=== PATIENT | female | born 1980 | race African-American/Black ===

== ENCOUNTER 2016-10-08 08:24 | Emergency (ER) | payer MEDICAID ==
[~2016-10-08] VITALS: Ht 175.3 cm; Wt 60.0 kg
[2016-10-08] MEDS: TETRACAINE 0.5% OPHTH DROPS 4ML BOTHEYE ONE (09:30)
[2016-10-08] MEDS: FLUORESCEIN SODIUM 1MG/STRIP BOTHEYE ONE ×2 (09:30→10:30)
[2016-10-08] MEDS: CYCLOPENTOLATE HCL 1% OPHTH DROPS 2ML BOTHEYE ONE ×2 (10:30→10:31)
[2016-10-08 11:38] VITALS: BP 148/98
== END 2016-10-08 11:58 | disposition home or self-care (01) ==
LOC: ER 08:55
DX: H15.002 Unspecified scleritis, left eye (principal); F17.200 Nicotine dependence, unspecified, uncomplicated
CPT/HCPCS: 99284

== ENCOUNTER 2018-04-30 13:09 | Emergency (ER) | payer SELFPAY ==
[~2018-04-30] VITALS: Ht 172.7 cm; Wt 62.0 kg
[2018-04-30] MEDS ORDERED: SODIUM CHLORIDE 0.9% 1,000 ML IV ONE (19:10)
[2018-04-30] MEDS ORDERED: ACETAMINOPHEN 325MG TABLET PO ONE (19:15)
[2018-04-30] MEDS ORDERED: TETANUS, DIPHTHERIA, PERTUSSIS VAC/PF 0.5ML (>7YR OLD) IM ONE (19:15)
[2018-04-30] MEDS ORDERED: AZITHROMYCIN 1,000 MG in DEXT 5% WATER 250 ML IV SCH (20:45)
[2018-04-30] MEDS ORDERED: CEFTRIAXONE SODIUM 250 MG/VIAL IV ONE (20:45)
[2018-04-30] MEDS ORDERED: CEFTRIAXONE IV NR (21:15)
[2018-04-30] MEDS ORDERED: WATER IV NR (21:15)
[2018-04-30] MEDS ORDERED: DEXTROSE 5% IV NR (21:15)
[2018-04-30] MEDS ORDERED: IBUPROFEN 600MG TABLET PO ONE (21:30)
[2018-04-30 23:25] VITALS: BP 134/86
== END 2018-04-30 23:29 | disposition home or self-care (01) ==
LOC: ER 13:09
DX: S00.83XA Contusion of other part of head, initial encounter (principal); M54.2 Cervicalgia; M25.511 Pain in right shoulder; R07.81 Pleurodynia; F12.10 Cannabis abuse, uncomplicated; F17.200 Nicotine dependence, unspecified, uncomplicated; Y08.89XA Assault by other specified means, initial encounter; Y93.89 Activity, other specified; Y92.89 Other specified places as the place of occurrence of the external cause; Y99.8 Other external cause status
CPT/HCPCS: 70450; 70486; 71101; 71250; 72125; 73030; 81025; 90471; 90715; 96365; 96368; 99284; J0456; J0696; J7030; J7060

== ENCOUNTER 2020-06-15 17:06 | Emergency (ER) | payer OTHER ==
[~2020-06-15] VITALS: Ht 172.7 cm; Wt 65.0 kg
[2020-06-15 18:59] LABS: HEMATOCRIT. 29.4 % (36.0-48.0); HEMOGLOBIN. 9.1 g/dL (12.0-16.0); MEAN CORPUSCULAR HEMOGLOBIN 20.4 pg (28.0-32.0); MEAN CORPUSCULAR VOLUME 65.6 fL (81.0-99.0); MEAN PLATELET VOLUME 8.3 fl (7.4-10.4); PLATELET 342 x1000/uL (130-400); RED BLOOD CELL COUNT 4.48 mill/uL (4.2-5.4); RED CELL DISTRIBUTION WIDTH 19.1 % (11.6-14.6)
[2020-06-15 19:06] LABS: CHLORIDE 103 mEq/L (98-107)
[2020-06-15 19:08] LABS: CLARITY URINE CLEAR (CLEAR); COLOR URINE YELLOW (YELLOW); KETONES URINE NEGATIVE (NEGATIVE); LEUKOCYTE ESTERASE URINE 2+ (NEGATIVE); NITRITE URINE NEGATIVE (NEGATIVE); OCCULT BLOOD URINE NEGATIVE (NEGATIVE); PROTEIN URINE NEGATIVE (NEGATIVE); SPECIFIC GRAVITY URINE 1.005 (1.005-1.030); UROBILINOGEN URINE 0.2 E.U./dL (0.2-1.0)
[2020-06-15 19:14] LABS: HCG SCREEN NEGATIVE
[2020-06-15 19:18] LABS: INR 0.9
[2020-06-15 19:46] LABS: PLATELET ESTIMATE NORMAL
[2020-06-15] MEDS ORDERED: CEFTRIAXONE 1 G PREMIX 50 ML IV ONE (20:15)
[2020-06-15] MEDS ORDERED: IBUP-2029 MT (22:42)
[2020-06-15] MEDS ORDERED: AMOX-494 MT (22:42)
[2020-06-15] MEDS ORDERED: KETOROLAC 15MG/ML VIAL IV ONE (23:00)
[2020-06-15 23:04] VITALS: BP 112/66
== END 2020-06-15 23:09 | disposition home or self-care (01) ==
LOC: ER 17:06
DX: R10.31 Right lower quadrant pain (principal); N30.00 Acute cystitis without hematuria; D25.9 Leiomyoma of uterus, unspecified; F17.290 Nicotine dependence, other tobacco product, uncomplicated; F12.10 Cannabis abuse, uncomplicated
CPT/HCPCS: 36415; 74176; 80053; 81003; 81025; 83690; 84703; 85025; 85610; 93005; 96365; 96375; 99285; J0696; J1885